=== PATIENT | female | born 1985 | race Caucasian/White ===

== ENCOUNTER 2021-02-02 09:10 | Outpatient (REF) | payer OTHER, SELFPAY | END 2021-02-02 09:11 | disposition home or self-care (01) | LOC: HO.LAB 09:10 | PROVIDERS: Visit Provider Internal Medicine | DX: Z20.822 Contact with and (suspected) exposure to COVID-19 (principal) | CPT/HCPCS: C9803; U0003; U0005 ==

== ENCOUNTER 2021-04-06 11:23 | Emergency (ER) | payer OTHER, SELFPAY ==
--- NOTE | ~2021-04-06 | XR_ITS ---
EXAMINATION: XR CHEST CLINICAL INFORMATION: Cough COMPARISON: None TECHNIQUE: Frontal view of the chest was obtained. FINDINGS: No significant abnormality is noted involving the heart, lungs, mediastinum, bony thorax or soft tissues. XR/XR chest 1V IMPRESSION: No acute disease.
[2021-04-06 11:41] VITALS: BP 139/76; PULSE 81; RESP 18; O2SAT 100; BMI 31.3
--- NOTE | 2021-04-06 12:01 | ED.GENADULT ---
HPI - General Adult General Chief complaint: General Medical Stated complaint: coughing blood Time Seen by Provider: 04/06/21 12:01 Source: patient Limitations: no limitations History of Present Illness HPI narrative: Patient presents to the ER with increasing cough with blood-tinged sputum. Patient states recent sick contacts with daughter but she tested negative for COVID-19 and negative strep throat. Patient has now lost her voice. Patient was concerned that she was coughing up tissue. Patient is fully vaccinated for COVID-19. Patient denies any nausea vomiting chest pain at this time. Patient recently quit tobacco approximately 3 months prior. Symptoms mild to moderate is some achy pain in the chest with coughing. No other complaints at this time Related Data Previous Rx's Medication Instructions Recorded albuterol sulfate 90 mcg/actuation 2 puff INHALATION QID PRN #6.7 g 04/06/21 aerosol inhaler (ProAir HFA) benzonatate 100 mg capsule 100 mg PO TID PRN #14 cap 04/06/21 Allergies Allergy/AdvReac Type Severity Reaction Status Date / Time acetaminophen [From VICODIN] Allergy Unknown FACIAL Verified 04/06/21 11:39 SWELLING From VICODIN Allergy Unknown FACIAL Uncoded 02/11/20 17:18 SWELLING Review of Systems Constitutional: Constitutional: Denies body ache(s), Denies chills, Denies fatigue, Denies fever(s) and Denies headache(s) ENT: Denies headache(s), Denies nasal congestion, Denies nasal discharge and Denies sore throat Cardiovascular: Cardiovascular: Reports chest pain (With cough) and Denies dyspnea Respiratory: Respiratory: Reports cough, Reports hemoptysis and Denies dyspnea Gastrointestinal: Gastrointestinal: Denies nausea and Denies vomiting Musculoskeletal: Musculoskeletal: Denies back pain Neurologic: Denies headache(s) Endocrine: Endocrine: Denies fatigue PMFSH Past Medical History Medical History COVID-19 Social History Social History Advance Directives: No Advance Directives Information Provided: Yes Patient : No Physical Exam Vital Signs: Vital Signs: Last Vital Signs Pulse 81 04/06/21 11:41 Resp 18 04/06/21 11:41 BP 139/76 04/06/21 11:41 Pulse Ox 100 04/06/21 11:41 Body Mass Index 31.3 vital signs have been reviewed as normal and appeared to be correct. Blood pressure normal. Heart rate normal. Respiration rate normal. Temperature normal. Oxygen saturation normal. Appearance: Alert. Oriented X3. No acute distress. Head: Normal external exam. Normocephalic. Atraumatic. Eyes: PERRLA. EOMI. Conjunctiva and sclera normal. Eyelids normal. ENT: Pharynx normal. Uvula midline. Moist mucous membranes. Neck: Soft full range of motion, no JVD CVS: Heart regular rate and rhythm no murmurs and rubs Respiratory: Breath sounds coarse no accessory muscle use. Abdomen: Soft nontender no rebound or guarding positive bowel sounds Back: No CVA tenderness. Full range of motion noted. Skin: Skin warm and dry. Normal skin color. Normal skin turgor. No rashes/lesions/lacerations noted. Extremities: No lower extremity edema. Extremities exhibit normal range of motion. Extremities nontender. Neuro: Oriented X 3. No motor deficit. No sensory deficit. Reflexes normal. Course Course Course Narrative: Pneumonia Acute bronchitis Viral syndrome URI O2 sat is 100% on room air chest x-ray pending Patient was recently started on a Z-Flavio and prednisone approximately 1 day prior. Medical Decision Making Imaging Data Chest x-ray: Radiologist's impression: [address] [address] XRay Report Signed Patient: Sara Schaeffer MR#: [id number] : 1985 Acct:[id number] Age/Sex: 35 / F ADM Date: 04/06/21 Loc: .ED Attending Dr: Ordering Physician: Abdullahi Hinds MD Date of Service: 04/06/21 Procedure(s): XR chest 1V Accession Number(s): [id number] cc: Abdullahi Hinds MD~ EXAMINATION: XR CHEST CLINICAL INFORMATION: Cough COMPARISON: None TECHNIQUE: Frontal view of the chest was obtained. FINDINGS: No significant abnormality is noted involving the heart, lungs, mediastinum, bony thorax or soft tissues. XR/XR chest 1V IMPRESSION: No acute disease. ? Dictated By: Holland Traylor MD Signed By: <Electronically signed by Holland Traylor MD in OV> 04/06/21 1259 DD/ 1151 TD/TT:? International [employer]: TYRON Discharge Plan Discharge Clinical Impression: Acute bronchitis Qualifiers: Bronchitis organism: unspecified organism Qualified Code(s): J20.9 - Acute bronchitis, unspecified Patient Disposition: Home, Self-Care Instructions: Acute Bronchitis (ED) Additional Instructions: Close follow-up with PCP is recommended Continue current medications Return if symptoms worsen Prescriptions: New albuterol sulfate [ProAir HFA] 90 mcg/actuation HFA aerosol inhaler 2 puff inhalation QID PRN (Reason: shortness of breath or wheezing) Qty: 6.7 RF: 0 benzonatate 100 mg capsule 100 mg PO TID PRN (Reason: cough) Qty: 14 RF: 0
[2021-04-06 14:47] LABS: Influenza A PCR NEGATIVE (Negative); Influenza B PCR NEGATIVE (Negative); Resp Syncy Virus RNA Qual PCR NEGATIVE (Negative); SARS COV2 PCR INHOUSE NEGATIVE (Negative)
== END 2021-04-06 13:36 | disposition home or self-care (01) ==
PROVIDERS: Physician Assistant; Emergency Provider Emergency Medicine; PCP Internal Medicine
DX: J20.9 Acute bronchitis, unspecified (principal); Z20.822 Contact with and (suspected) exposure to COVID-19
CPT/HCPCS: 0241U; 36415; 71045; 99283